=== PATIENT | male | born 1970 | race Hispanic/Latino ===

== ENCOUNTER 2023-10-15 11:08 | Emergency (ER) | payer OTHER, SELFPAY ==
[2023-10-15 11:25] VITALS: BP 130/93; PULSE 103; RESP 18; TEMP 36.7; O2SAT 98
--- NOTE | 2023-10-15 11:44 | ED.EYEPROB ---
HPI - Eye Problem General Chief complaint: Eye Problems Stated complaint: Right Eye Injury Time Seen by Provider: 10/15/23 11:44 Source: patient Mode of arrival: ambulatory Limitations: no limitations History of Present Illness HPI Narrative: 52 y/o male presented for c/o right eye pain after injury today at work. States while working outside, a tree branch poked him in the inner right eye. Rates pain 7/10, described as throbbing, and the eye is red. Pain is worse to the outside edge of the right eye.He rinsed the eye with water. Denies foreign body sensation. Denies significant vision changes, eye drainage, headache or light sensitivity. MD chief complaint: eye pain Related Data Home Medications Medication Instructions Recorded Confirmed atorvastatin 80 mg tablet mg 10/15/23 blood sugar diagnostic (True 10/15/23 10/15/23 Metrix Glucose Test Strip) canagliflozin 100 mg tablet 100 mg PO DAILY 10/15/23 10/15/23 (Invokana) ezetimibe 10 mg tablet 10 mg PO DAILY 10/15/23 10/15/23 glimepiride 1 mg tablet 1 mg PO DAILY 10/15/23 10/15/23 glimepiride 2 mg tablet 2 mg PO DAILY 10/15/23 10/15/23 lancets 33 gauge (TRUEplus Lancets) 10/15/23 10/15/23 lisinopril 20 1 tablet PO DAILY 10/15/23 10/15/23 mg-hydrochlorothiazide 25 mg tablet metformin 1,000 mg tablet 1,000 mg PO BID 10/15/23 10/15/23 Allergies Allergy/AdvReac Type Severity Reaction Status Date / Time acetaminophen [From Tylenol] AdvReac Rash Verified 10/15/23 11:53 ibuprofen [From Motrin] AdvReac Rash Verified 10/15/23 11:53 Review of Systems Review of Systems: CONSTITUTIONAL: Denies body aches, fever, chills EYES:Endorses redness and pain to right eye; denies FB sensation, photophobia, visual changes ENT: Denies rhinorrhea, congestion, sore throat, or otalgia. CARDIOVASCULAR: Denies chest pain, palpitations SKIN: Denies rash, itching, or wounds. MUSCULOSKELETAL: Denies back pain, joint pain, or myalgia. NEUROLOGIC: Denies headache, numbness, tingling, or weakness. All systems reviewed & are unremarkable except as noted in HPI and below [facility] Past Medical History Medical History (Updated 10/15/23 @ 12:17 by Lilian Preston APRN) Diabetes Comments At time of signature, I have reviewed and agree with nursing past medical, surgical, social and family history unless otherwise noted. Please see nursing chart for further information. There is no relevant family history pertinent to the presenting complaint Exam Narrative: GENERAL: Well-appearing HEAD: Normocephalic, atraumatic. EYES: bilateral conjunctival injection, PERRLA, EOMI. Lid eversion showed No foreign body noted. Pinpoint corneal abrasion identified with Acharya lamp to medial aspect of cornea at 3o'clock. No purulent drainage or swelling. 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 No external abrasions noted. ENT: Mucous membranes pink and moist. No rhinorrhea. TMs normal bilaterally. Throat normal. Uvula midline. CHEST: Clear to auscultation. HEART: Regular rate and rhythm. SKIN: Warm, dry, no rash. Normal skin turgor. NEURO: No focal deficits. Alert and oriented x3 PSYCH: Normal affect. Eyes: Eyes/upper lids images: 1. area of corneal abrasion noted on acharya lamp Course Course Emergency Course: Patient is aware of diagnosis, understands and agrees to treatment plan. Anticipatory guidance given. Patient agrees to follow-up as directed and is aware of reasons to seek care at the emergency department. Portions of this record may have been created with voice recognition software Level of Care: Express Care Visit Vital Signs Vital signs: Vital Signs Temperature 98.1 F 10/15/23 11:25 Pulse Rate 103 H 10/15/23 11:25 Respiratory Rate 18 10/15/23 11:25 Blood Pressure 130/93 H 10/15/23 11:25 Pulse Oximetry 98 10/15/23 11:25 Oxygen Delivery Room Air 10/15/23 11:25 Temperature 98.1 F 10/15/23 11:25 Puls
[2023-10-15] MEDS: TETRACAINE HCL 0.5% OPHTH SOLN 4 ML BTL 1 DROP RIGHT EYE (11:55)
[2023-10-15] MEDS: DACRIOSE EYE IRRIGATION 118 ML BOTTLE 20 ML RIGHT EYE (11:55)
[2023-10-15] MEDS: FLUORESCEIN SOD 1 MG/STRIP RIGHT EYE (11:57)
== END 2023-10-15 12:20 | disposition home or self-care (01) ==
PROVIDERS: Emergency Provider Nurse Practitioner Family
DX: S05.01XA Injury of conjunctiva and corneal abrasion without foreign body, right eye, initial encounter (principal); W22.8XXA Striking against or struck by other objects, initial encounter; E11.9 Type 2 diabetes mellitus without complications; Z79.84 Long term (current) use of oral hypoglycemic drugs
CPT/HCPCS: 99213; A9270; G0463